=== PATIENT | male | born 1960 | race Hispanic/Latino ===

== ENCOUNTER 2020-01-25 13:49 | Emergency (ER) | payer BC ==
[2020-01-25] MEDS ORDERED: predniSONE 20 MG TAB ONE (14:22)
[2020-01-25] MEDS ORDERED: VALACYCLOVIR 500 MG TAB ONE (14:22)
--- NOTE | 2020-01-25 14:24 | ER ---
Nurse's Notes [facility] Name: Nick Tejeda Age: 59 yrs Sex: Male : 1960 Arrival Date: 01/25/2020 Time: 13:53 Bed 4 Private MD: Ty Gerardo Diagnosis: Vanegas's palsy Presentation: 01/24 13:56 Chief complaint: Patient states: left sided numbness and left eye tearing (unable to sv close eyelid) started yesterday at 0500. When he drinks water it is comes out the left side. Denies generalized weakness. Coronavirus screen: Proceed with normal triage. Patient denies a cough. Patient denies shortness of breath or difficulty breathing. Patient denies measured and/or subjective temperature greater than 100.4F prior to today's visit. Patient denies travel on a cruise ship or to a country the [facility] currently lists as an affected area. Patient denies contact with known and/or suspected case of COVID-19. Ebola Screen: No symptoms or risks identified at this time. Risk Assessment: Do you want to hurt yourself or someone else? Patient reports no desire to harm self or others. Onset of symptoms was January 24, 2020 at 05:00. 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 sv 14:01 Initial Sepsis Screen: Does the patient meet any 2 criteria? No. Patient's initial sv sepsis screen is negative. Does the patient have a suspected source of infection? No. Patient's initial sepsis screen is negative. Triage Assessment: 14:04 General: Appears in no apparent distress. comfortable, Behavior is calm, cooperative, sv appropriate for age. Pain: Denies pain. EENT: unable to blink on the left eyelid. Neuro: Level of Consciousness is awake, alert, obeys commands, Oriented to person, place, time, situation, Gait is steady, Speech is normal. Respiratory: Respiratory effort is even, unlabored. Historical: - Allergies: 14: No Known Allergies; sv - PMHx: 14: Hypertension; High Cholesterol; sv - PSHx: 14: None; sv - Immunization history:: Adult Immunizations up to date. - Social history:: Smoking status: Patient denies any tobacco usage or history of. - Family history:: not pertinent. Screenin:10 Abuse screen: Denies threats or abuse. Denies injuries from another. Nutritional bp screening: No deficits noted. Tuberculosis screening: No symptoms or risk factors identified. Fall Risk None identified. Assessment: 14:10 General: Appears in no apparent distress. comfortable, Behavior is cooperative, bp appropriate for age, anxious. Pain: Denies pain. Neuro: Facial droop on left, INVOLVING LIP, NARES, ORBIT AND BROW. Cardiovascular: No deficits noted. Respiratory: No deficits noted. GI: No signs and/or symptoms were reported involving the gastrointestinal system. : No signs and/or symptoms were reported regarding the genitourinary system. EENT: No deficits noted. Derm: No deficits noted. Musculoskeletal: No deficits noted. 14:45 Reassessment: PT D/C HOME AMBULATORY, DX WITH VANEGAS'S PALSY. bp Vital Signs: 14:01 BP 135 / 100; Pulse 66; Resp 16; Temp 99; Pulse Ox 98% ; Weight 108.86 kg; Height 6 ft. sv 0 in. (182.88 cm); Pain 0/10; 14:01 Body Mass Index 32.55 (108.86 kg, 182.88 cm) sv NIH Stroke Scale Scores: 14:22 NIHSS Score: 3 jai ED Course: 13:53 Patient arrived in ED. am2 13:53 Ty Gerardo MD is Private Physician. am2 13:56 Arm band placed on. sv 14:00 Triage completed. sv 14:06 Brendan Muñiz, MARION is Primary Nurse. bp 14:07 Ricky Barry MD is Attending Physician. jai 14:10 Patient has correct armband on for positive identification. Bed in low position. Call bp light in reach. Side rails up X2. 14:23 Ty Gerardo MD is Referral Physician. jai 14:24 Breezy Mcnair MD is Referral Physician. [facility] 14:45 No provider procedures requiring assistance completed. Patient did not have IV access bp during this emergency room visit. Administered Medications: 14:15 Drug: predniSONE 60 mg Route: PO; bp 14:46 Follow up: Response: No adverse reaction bp 14:15 Drug: Valtrex 1000 mg Route: PO; bp 14:46 Follow up: Response: No adverse reaction bp Outcome: 14:24 Discharge ordered by . jai 14:45 Discharged to home ambulatory. bp 14:45 Condition: stable 14:45 Discharge instructions given to patient, Instructed on discharge instructions, follow up and referral plans. medication usage, Demonstrated understanding of instructions, follow-up care, medications, Prescriptions given X 3. 14:47 Patient left the ED. bp NIH Stroke Scale - NIH Stroke Score Date: 01/25/2020 Time: 14:22 Total Score = 3 1a. Level of Consciousness (LOC) - 0(Alert) 1b. Level of Consciousness (LOC) (Year \T\ Age) - 0(Both) 1c. LOC Commands (Open \T\ Closes Eyes/Academic Administrator) - 0(Both) 2. Best Gaze (Lateral Gaze Paresis) - 0(Normal) 3. Visual Field Loss - 0(No visual loss) 4. Facial Palsy - 2(Partial paralysis) 5a. Left Arm: Motor (10-second hold) - 0(No drift) 5b. Right Arm: Motor (10-second hold) - 0(No drift) 6a. Left Leg: Motor (5-second hold - always test supine) - 0(No drift) 6b. Right Leg: Motor (5-second hold - always test supine) - 0(No drift) 7. Limb Ataxia (finger/nose \T\ heel/strauss - test with eyes open) - 0(Absent) 8. Sensory Loss (pinprick arms/legs/face) - 1(Mild to moderate loss) 9. Best Language: Aphasia (description/naming/reading) - 0(No aphasia) 10. Dysarthria (speech clarity - read or repeat words) - 0(Normal) 11. Extinction and Inattention (visual/tactile/auditory/spatial/personal) - 0(No abnormality) Initials: [facility] Signatures: Ale Gifford RN RN Ricky Fink MD MD cha Moreno, Amanda am2 Brendan Muñiz, MARION RN bp Corrections: (The following items were deleted from the chart) 14:04 13:56 Acuity: MIRNA 3 sv sv 14:04 14:01 108.86 kg; Height 6 ft. 0 in.; BMI: 32.5; sv sv 14:04 14:01 Pulse 66bpm; Resp 16bpm; Pulse Ox 98%; Temp 99F; 108.86 kg; Height 6 ft. sv 0 in.; BMI: 32.5; Pain 0/10; sv
--- NOTE | 2020-01-25 14:25 | EDPHYS ---
Physician Documentation [facility] Name: Nick Tejeda Age: 59 yrs Sex: Male : 1960 Arrival Date: 01/25/2020 Time: 13:53 Bed 4 Private MD: Ty Gerardo ED Physician Ricky Barry HPI: 01/24 14:20 This 59 yrs old Male presents to ER via Ambulatory with complaints of Numbness jai Of Face. 14:20 The patient's problem is reported as a facial droop, on left, paresthesias, in left jai side of face. Onset: The symptoms/episode began/occurred 1 day(s) ago. Duration: The episode is continuous. Context: the episode(s) was witnessed, by family, symptoms became apparent upon waking, occurred at an unknown location. The symptoms are alleviated by nothing. The symptoms are aggravated by nothing. Associated signs and symptoms: The patient has no apparent associated signs or symptoms. Severity of symptoms: At their worst the symptoms were mild in the emergency department the symptoms are unchanged. The patient has not experienced similar symptoms in the past. Historical: - Allergies: 14:01 No Known Allergies; sv - PMHx: 14:01 Hypertension; High Cholesterol; sv - PSHx: 14:01 None; sv - Immunization history:: Adult Immunizations up to date. - Social history:: Smoking status: Patient denies any tobacco usage or history of. - Family history:: not pertinent. ROS: 14:20 Constitutional: Negative for fever, chills, and weight loss, Eyes: Negative for injury, jai pain, redness, and discharge, ENT: Negative for injury, pain, and discharge, Neck: Negative for injury, pain, and swelling, Cardiovascular: Negative for chest pain, palpitations, and edema, Respiratory: Negative for shortness of breath, cough, wheezing, and pleuritic chest pain, Abdomen/GI: Negative for abdominal pain, nausea, vomiting, diarrhea, and constipation, Back: Negative for injury and pain, : Negative for injury, bleeding, discharge, and swelling, MS/Extremity: Negative for injury and deformity, Skin: Negative for injury, rash, and discoloration, Psych: Negative for depression, anxiety, suicide ideation, homicidal ideation, and hallucinations, Allergy/Immunology: Negative for hives, rash, and allergies, Endocrine: Negative for neck swelling, polydipsia, polyuria, polyphagia, and marked weight changes, Hematologic/Lymphatic: Negative for swollen nodes, abnormal bleeding, and unusual bruising. 14:20 Neuro: Positive for weakness, of the forehead, left cheek, left eye, left worship and left jaw. Exam: 14:20 Constitutional: This is a well developed, well nourished patient who is awake, alert, jai and in no acute distress. Eyes: Pupils equal round and reactive to light, extra-ocular motions intact. Lids and lashes normal. Conjunctiva and sclera are non-icteric and not injected. Cornea within normal limits. Periorbital areas with no swelling, redness, or edema. ENT: Nares patent. No nasal discharge, no septal abnormalities noted. Tympanic membranes are normal and external auditory canals are clear. Oropharynx with no redness, swelling, or masses, exudates, or evidence of obstruction, uvula midline. Mucous membranes moist. Neck: Trachea midline, no thyromegaly or masses palpated, and no cervical lymphadenopathy. Supple, full range of motion without nuchal rigidity, or vertebral point tenderness. No Meningismus. Chest/axilla: Normal chest wall appearance and motion. Nontender with no deformity. No lesions are appreciated. Cardiovascular: Regular rate and rhythm with a normal S1 and S2. No gallops, murmurs, or rubs. Normal PMI, no JVD. No pulse deficits. Respiratory: Lungs have equal breath sounds bilaterally, clear to auscultation and percussion. No rales, rhonchi or wheezes noted. No increased work of breathing, no retractions or nasal flaring. Abdomen/GI: Soft, non-tender, with normal bowel sounds. No distension or tympany. No guarding or rebound. No evidence of tenderness throughout. Back: No spinal tenderness. No costovertebral tenderness. Full range of motion. Skin: Warm, dry with normal turgor. Normal color with no rashes, no lesions, and no evidence of cellulitis. MS/ Extremity: Pulses equal, no cyanosis. Neurovascular intact. Full, normal range of motion. Psych: Awake, alert, with orientation to person, place and time. Behavior, mood, and affect are within normal limits. 14:20 Head/face: Noted is left facial weakness. 14:22 CT study not indicated or reported. Reason for not performing CT: feli cline jai Vital Signs: 14:01 BP 135 / 100; Pulse 66; Resp 16; Temp 99; Pulse Ox 98% ; Weight 108.86 kg; Height 6 ft. sv 0 in. (182.88 cm); Pain 0/10; 14:01 Body Mass Index 32.55 (108.86 kg, 182.88 cm) sv NIH Stroke Scale Scores: 14:22 NIHSS Score: 3 jai MDM: 14:07 Patient medically screened. aji 14:26 Data reviewed: vital signs, nurses notes. jai 14:26 Differential diagnosis: CVA, TIA, paralysis. Data interpreted: weld fitter: not jai applicable for this patient encounter. Test interpretation: by ED physician or midlevel provider: not applicable. Counseling: I had a detailed discussion with the patient and/or guardian regarding: the historical points, exam findings, and any diagnostic results supporting the discharge/admit diagnosis, the need for outpatient follow up, a neurologist. ED course: feli cline, follow up dr merino, return to er if worse. Administered Medications: 14:15 Drug: predniSONE 60 mg Route: PO; bp 14:46 Follow up: Response: No adverse reaction bp 14:15 Drug: Valtrex 1000 mg Route: PO; bp 14:46 Follow up: Response: No adverse reaction bp Disposition: 01/25/20 14:24 Discharged to Home. Impression: Vanegas's palsy. - Condition is Stable. - Discharge Instructions: Vanegas Palsy, Adult, Aspirin and Your Heart. - Prescriptions for Artificial Tears - instill 1 application by OPHTHALMIC route 7 times per day; 1 bottle. Valtrex 1 g Oral Tablet - take 1 tablet by ORAL route every 8 hours for 7 days; 21 tablet. Prednisone 20 mg Oral Tablet - take 2 tablet by ORAL route once daily for 5 days; 10 tablet. - Medication Reconciliation Form, Thank You Letter, Antibiotic Education, Prescription Opioid Use form. - Follow up: Ty Gerardo MD; When: 2 - 3 days; Reason: Recheck today's complaints, Continuance of care, Re-evaluation by your physician. Follow up: Breezy Merino MD; When: 2 - 3 days; Reason: Recheck today's complaints, Re-evaluation by your physician. - Problem is new. - Symptoms have improved. NIH Stroke Scale - NIH Stroke Score Date: 01/25/2020 Time: 14:22 Total Score = 3 1a. Level of Consciousness (LOC) - 0(Alert) 1b. Level of Consciousness (LOC) (Year \T\ Age) - 0(Both) 1c. LOC Commands (Open \T\ Closes Eyes/Milling Machine Operator Gear) - 0(Both) 2. Best Gaze (Lateral Gaze Paresis) - 0(Normal) 3. Visual Field Loss - 0(No visual loss) 4. Facial Palsy - 2(Partial paralysis) 5a. Left Arm: Motor (10-second hold) - 0(No drift) 5b. Right Arm: Motor (10-second hold) - 0(No drift) 6a. Left Leg: Motor (5-second hold - always test supine) - 0(No drift) 6b. Right Leg: Motor (5-second hold - always test supine) - 0(No drift) 7. Limb Ataxia (finger/nose \T\ heel/strauss - test with eyes open) - 0(Absent) 8. Sensory Loss (pinprick arms/legs/face) - 1(Mild to moderate loss) 9. Best Language: Aphasia (description/naming/reading) - 0(No aphasia) 10. Dysarthria (speech clarity - read or repeat words) - 0(Normal) 11. Extinction and Inattention (visual/tactile/auditory/spatial/personal) - 0(No abnormality) Initials: jai Signatures: Ale Gifford RN RN Ricky Fink MD MD cha Peltier, Brian, RN RN bp Corrections: (The following items were deleted from the chart) 14:47 14:24 01/25/2020 14:24 Discharged to Home. Impression: Vanegas's palsy. Condition bp is Stable. Forms are Medication Reconciliation Form, Thank You Letter, Antibiotic Education, Prescription Opioid Use. Follow up: Ty Gerardo; When: 2 - 3 days; Reason: Recheck today's complaints, Continuance of care, Re-evaluation by your physician. Follow up: Breezy Merino; When: 2 - 3 days; Reason: Recheck today's complaints, Re-evaluation by your physician. Problem is new. Symptoms have improved. jai
[2020-01-25 15:08] VITALS: BP 135/100; TEMP 99; O2SAT 98
== END 2020-01-25 14:47 | disposition home or self-care (01) ==
LOC: ER 13:49
DX: G51.0 Bell's palsy (principal); I10 Essential (primary) hypertension
CPT/HCPCS: 99283; J7512